=== PATIENT | female | born 1970 | race Caucasian/White ===

== ENCOUNTER 2024-01-25 16:24 | Emergency (ER) | payer BC ==
[2024-01-25] MEDS ORDERED: cefTRIAXone 1 GM Vial IM ONE (16:53)
== END 2024-01-25 17:11 | disposition home or self-care (01) ==
LOC: DL.ED 16:24
DX: L03.113 Cellulitis of right upper limb (principal); I80.8 Phlebitis and thrombophlebitis of other sites
CPT/HCPCS: 99282; 99283